=== PATIENT | male | born 1930 | race African-American/Black ===

== ENCOUNTER 2018-01-13 12:09 | Inpatient (IN) | payer MEDICARE, OTHER ==
[~2018-01-13] VITALS: Ht 170.2 cm; Wt 92.5 kg
[~2018-01-13 12:09] MED LIST: AMIT25TA9 PO; ASPI-1159 PO; ATOR-2 PO; BIMA2.5D4 EACHEYE; BRIM10DR2 EACHEYE; COLC0.6T66 PO; DOCU-267 PO; ESOM40CA PO; GABA300C PO; HYDR25TA PO; RIVA10TA PO; TAMS-11 PO; TRAM50TA3 PO; VIC PO
[2018-01-13 12:55] LABS: HEMATOCRIT. 38.1 % (42.0-52.0); HEMOGLOBIN. 13.2 g/dL (14.0-18.0); MEAN CORPUSCULAR HEMOGLOBIN 34.6 pg (28.0-32.0); MEAN CORPUSCULAR VOLUME 99.9 fL (80.0-94.0); MEAN PLATELET VOLUME 7.2 fl (7.4-10.4); PLATELET 201 x1000/uL (130-400); RED BLOOD CELL COUNT 3.82 mill/uL (4.7-6.1); RED CELL DISTRIBUTION WIDTH 15.1 % (11.6-14.6)
[2018-01-13 12:58] LABS: CHLORIDE 101 mEq/L (98-107)
[2018-01-13 13:10] LABS: PARTIAL THROMBOPLASTIN TIME 23.1 sec (23.4-31.0); PROTHROMBIN TIME 10.7 sec (9.4-11.6)
[2018-01-13 13:27] LABS: PLATELET ESTIMATE NORMAL
[2018-01-13] MEDS ORDERED: GUAIFENESIN 200MG/10ML SUGAR FREE UDC PO PRN (15:15)
[2018-01-13] MEDS ORDERED: ONDANSETRON HCL 4MG/2ML VIAL IV PRN (15:15)
[2018-01-13] MEDS ORDERED: DOCUSATE SODIUM 100MG CAPSULE PO PRN (15:15)
[2018-01-13] MEDS ORDERED: ACETAMINOPHEN 325MG TABLET PO PRN (15:15)
[2018-01-13] MEDS ORDERED: CLONIDINE 0.1MG TABLET PO PRN (15:15)
[2018-01-13] MEDS ORDERED: MAGNESIUM/ALUMINUM HYDROXIDE/SIMETHICONE 30ML UDC PO PRN (15:15)
[2018-01-13] MEDS ORDERED: MORPHINE SULFATE 4 MG/ML CPJ (NOT FOR IM USE) IV PRN (15:15)
[2018-01-13] MEDS ORDERED: IMAT100T2 MT (17:39)
[2018-01-13] MEDS ORDERED: BRIM10DR2 EACHEYE (17:39)
[2018-01-13] MEDS ORDERED: CARV3.1242 PO (17:39)
[2018-01-13] MEDS ORDERED: TERA1CAP7 PO (17:39)
[2018-01-13] MEDS ORDERED: LOTE5DRO4 EACHEYE (17:39)
[2018-01-13 17:50] VITALS: BP 157/75
[2018-01-13] MEDS: METOPROLOL TARTRATE 25MG TABLET PO SCH (19:52)
[2018-01-13 20:00] VITALS: BP 132/71
[2018-01-13] MEDS: TAMSULOSIN HCL 0.4MG SR CAPSULE PO SCH (20:00)
[2018-01-13] MEDS: PANTOPRAZOLE 40MG DR TABLET PO SCH (20:00)
[2018-01-13] MEDS ORDERED: RIVAROXABAN 20 MG TABLET PO SCH (20:00)
[2018-01-13] MEDS: COLCHICINE 0.6MG TABLET PO SCH (20:21)
[2018-01-13] MEDS: AMLODIPINE 5MG TABLET PO SCH (20:21)
[2018-01-13] MEDS ORDERED: AMITRIPTYLINE 50MG TABLET PO SCH (21:00)
[2018-01-13] MEDS ORDERED: ATORVASTATIN CALCIUM 40MG TABLET PO SCH (21:00)
[2018-01-13] MEDS: GABAPENTIN 300MG CAPSULE PO SCH (21:58)
[2018-01-13] MEDS: HYDROCODONE/ACETAMINOPHEN 5/325MG TABLET PO PRN (21:58)
[2018-01-14] VITALS: BP 108/62
[2018-01-14 00:35] LABS: CREATINE KINASE 125 IU/L (39-308); CREATINE KINASE MB FRACTION 1.5 ng/mL (0.5-3.6)
[2018-01-14 04:08] VITALS: BP 136/55
[2018-01-14] MEDS: HYDROCODONE/ACETAMINOPHEN 5/325MG TABLET PO PRN (04:14)
[2018-01-14] MEDS: PANTOPRAZOLE 40MG DR TABLET PO SCH (06:36)
[2018-01-14 07:32] LABS: BASOPHILS % 0.6 % (0.0-2.0); HEMATOCRIT. 36.2 % (42.0-52.0); HEMOGLOBIN. 12.5 g/dL (14.0-18.0); LYMPHOCYTES % 47.2 % (20.0-50.0); MEAN CORPUSCULAR HEMOGLOBIN 34.6 pg (28.0-32.0); MEAN PLATELET VOLUME 7.8 fl (7.4-10.4); MONOCYTES % 8.9 % (2.0-8.0); NEUTROPHILS % 40.3 % (40.0-76.0); PLATELET 200 x1000/uL (130-400); RED BLOOD CELL COUNT 3.62 mill/uL (4.7-6.1)
[2018-01-14 08:14] LABS: CHLORIDE 100 mEq/L (98-107)
[2018-01-14 08:29] LABS: LDL CHOLESTEROL 43 mg/dL (5-100)
[2018-01-14 08:30] LABS: CREATINE KINASE 123 IU/L (39-308)
[2018-01-14 08:31] VITALS: BP 117/68
[2018-01-14 08:32] LABS: CREATINE KINASE MB FRACTION 1.4 ng/mL (0.5-3.6); HDL CHOLESTEROL 61 mg/dL (40-59)
[2018-01-14] MEDS: AMLODIPINE 5MG TABLET PO SCH (08:44)
[2018-01-14] MEDS: GABAPENTIN 300MG CAPSULE PO SCH (08:44)
[2018-01-14] MEDS: COLCHICINE 0.6MG TABLET PO SCH (08:44)
[2018-01-14] MEDS: TAMSULOSIN HCL 0.4MG SR CAPSULE PO SCH (08:44)
[2018-01-14] MEDS: METOPROLOL TARTRATE 25MG TABLET PO SCH (08:45)
[2018-01-14] MEDS ORDERED: HYDROCHLOROTHIAZIDE 25MG TABLET PO SCH (09:00)
[2018-01-14] MEDS ORDERED: ASPIRIN 81MG EC TABLET PO SCH (09:00)
[2018-01-14 10:30] VITALS: BP 117/68
== END 2018-01-14 12:15 | disposition home or self-care (01) | DRG 303 ==
LOC: ER 12:29 → 8WST 12:58 → EDBEDREQ 13:01 → EDBEDREQTM 13:01 → SUPCPDRO 15:05 → ENRESERV 16:03
PROVIDERS: ADMIT Hospitalist; ATTEND Hospitalist
DX: I25.118 Atherosclerotic heart disease of native coronary artery with other forms of angina pectoris (principal); I24.9 Acute ischemic heart disease, unspecified; I45.2 Bifascicular block; E46 Unspecified protein-calorie malnutrition; D64.9 Anemia, unspecified; E78.5 Hyperlipidemia, unspecified; H40.9 Unspecified glaucoma; I11.9 Hypertensive heart disease without heart failure; N40.0 Benign prostatic hyperplasia without lower urinary tract symptoms; M10.9 Gout, unspecified; R73.9 Hyperglycemia, unspecified; Z79.1 Long term (current) use of non-steroidal anti-inflammatories (NSAID); Z79.01 Long term (current) use of anticoagulants; Z86.718 Personal history of other venous thrombosis and embolism; Z79.82 Long term (current) use of aspirin; Z86.711 Personal history of pulmonary embolism; Z79.899 Other long term (current) drug therapy; Z68.32 Body mass index [BMI] 32.0-32.9, adult; E83.51 Hypocalcemia
CPT/HCPCS: 36415; 71045; 80053; 80061; 82550; 82553; 83036; 83690; 83880; 84439; 84443; 84484; 85025; 85610; 85730; 93005; 93970; 99285